=== PATIENT | male | born 1955 | race Caucasian/White ===

== ENCOUNTER 2017-05-27 07:12 | Outpatient (CLI) | payer OTHER ==
[~2017-05-27 07:12] MED LIST: AMOX1TAB12 PO; CLONAZEPAM0.5 MG PO; DOCUSATE SODIU100 MG PO; GABAPENTIN800 MG PO; PERCOCET 5-3251 EACH PO; RESTORIL30 M1 PO; WELLBUTRIN SR150 MG PO
== END 2017-05-27 07:27 | disposition home or self-care (01) ==
LOC: LAB 07:12
DX: D68.9 Coagulation defect, unspecified (principal); D64.9 Anemia, unspecified; E03.9 Hypothyroidism, unspecified

== ENCOUNTER 2017-05-27 07:30 | Outpatient (CLI) | payer OTHER | END 2017-05-27 07:34 | disposition home or self-care (01) | LOC: RAD 07:30 | DX: R07.9 Chest pain, unspecified (principal) ==

== ENCOUNTER 2017-05-29 09:15 | Inpatient (IN) | payer OTHER ==
[~2017-05-29] VITALS: Ht 177.8 cm; Wt 83.9 kg
[2017-06-03] MEDS ORDERED: GABAPENTIN800 MG PO (08:58)
[2017-06-03] MEDS ORDERED: AMOX-CLAV 875-1 EACH PO ×2 (08:59→09:03)
[2017-06-03] MEDS ORDERED: PERCOCET 5-3251 EACH PO (09:00)
[2017-06-03] MEDS ORDERED: CLONAZEPAM1 MG PO (09:00)
[2017-06-03] MEDS ORDERED: COLACE100 MG PO (09:01)
== END 2017-06-03 15:16 | disposition home or self-care (01) | DRG 520 ==
LOC: SURH 06-01 09:15 → O/R 06-02 06:05 → PED 06-02 06:05 → SURH 06-02 09:15 → PED 06-02 19:16
PROVIDERS: Orthopaedic Surgery Orthopaedic Surgery of the Spine
PROC: 00NY0ZZ Release Lumbar Spinal Cord, Open Approach (ICD-10-PCS; principal; 2017-06-02 13:00)
DX: M96.1 Postlaminectomy syndrome, not elsewhere classified (principal); M48.061 Spinal stenosis, lumbar region without neurogenic claudication; M65.88 Other synovitis and tenosynovitis, other site; M51.37 Other intervertebral disc degeneration, lumbosacral region

== ENCOUNTER 2022-11-26 14:58 | Outpatient (CLI) | payer OTHER ==
[~2022-11-26 14:58] MED LIST changes: +AMOX-CLAV 875-1 EACH PO; +CLONAZEPAM1 MG PO; +COLACE100 MG PO
== END 2022-11-26 15:10 | disposition home or self-care (01) ==
LOC: EKG 14:58
PROVIDERS: ATTEND Internal Medicine
DX: R00.1 Bradycardia, unspecified (principal); J44.1 Chronic obstructive pulmonary disease with (acute) exacerbation

== ENCOUNTER → 2022-12-02 | Outpatient (CLI) | payer OTHER | END | disposition home or self-care (01) | LOC: SONOGRAMA 15:47 | PROVIDERS: ATTEND Internal Medicine | DX: N18.31 Chronic kidney disease, stage 3a (principal) ==

== ENCOUNTER 2023-01-13 13:47 | Outpatient (CLI) | payer OTHER | END 2023-01-13 13:54 | disposition home or self-care (01) | LOC: RAD 13:47 | DX: Z01.811 Encounter for preprocedural respiratory examination (principal) ==

== ENCOUNTER 2023-01-13 15:01 | Outpatient (CLI) | payer OTHER | END 2023-01-13 23:00 | disposition home or self-care (01) | LOC: EKG 15:01 | DX: H02.34 Blepharochalasis left upper eyelid (principal) ==